=== PATIENT | male | born 1975 ===

== ENCOUNTER 2025-05-12 06:26 | Day surgery (SDC) | payer BC, SELFPAY | END 2025-05-12 14:34 | disposition home or self-care (01) | LOC: GI 06:26 | PROVIDERS: ATTENDING PHYSICIAN Internal Medicine Gastroenterology | DX: Z12.11 Encounter for screening for malignant neoplasm of colon (principal); Z83.719 Family history of colon polyps, unspecified; K63.5 Polyp of colon; R12 Heartburn; K44.9 Diaphragmatic hernia without obstruction or gangrene; K31.7 Polyp of stomach and duodenum; K22.89 Other specified disease of esophagus; K20.0 Eosinophilic esophagitis; K31.89 Other diseases of stomach and duodenum | CPT/HCPCS: 45385; 43239; 88305 ==